=== PATIENT | female | born 1965 | race Caucasian/White ===

== ENCOUNTER 2017-10-06 08:10 | Outpatient (RCR) | payer OTHER, MEDICAID, SELFPAY ==
--- NOTE | 2017-10-06 08:58 | PT.OTN ---
Current Diagnoses Spondylolisthesis, lumbar region (10/06/17) Unspecified inflammatory spondylopathy, lumbar region (10/06/17) Radiculopathy, lumbosacral region (10/06/17) Cervicalgia (10/06/17) Difficulty in walking, not elsewhere classified (10/06/17) Abnormal posture (10/06/17) Weakness (10/06/17) Physical Therapy Treatment Note PT-OP-A Visit Information Start: 10/06/17 07:25 Freq: Status: Active Protocol: Document 10/06/17 08:17 [facility] (Rec: 10/06/17 08:58 [facility] [id number]) Out-Patient Physical Therapy Visit Information Visit Information Visit Type Treatment Note Visit Start Time 08:15 Visit Stop Time 09:05 Total Visit Minutes 55 Visit Number 3 visits left Number of PAINTER HELPER Visits 0 PT-OP-C Subjective Start: 10/06/17 07:25 Freq: Status: Active Protocol: Document 10/06/17 08:17 [facility] (Rec: 10/06/17 08:58 [facility] [id number]) OP-PT Subjective Patient Comments Patient Comments reports some soreness in hips & calves from hike yesterday. PT-OP-Q Treatments Start: 10/06/17 07:25 Freq: Status: Active Protocol: Document 10/06/17 08:17 [facility] (Rec: 10/06/17 08:58 [facility] [id number]) Therapeutic Exercises Standing Exercises 1 Standing Exercise Name Squats with VC for form Reps/Minutes 4 min Therapeutic Activity Therapeutic Activity 1 Comments Review HEP & discuss proper standing posture w/ use of pictures to set pt up into good posture; discussed features of a good bar and importance PT-OP-R Modalities Start: 10/06/17 07:25 Freq: Status: Active Protocol: Document 10/06/17 08:17 [facility] (Rec: 10/06/17 08:58 [facility] [id number]) Hot Pack/Cold Pack Treatment Cold Pack Location cervical & lumbar Patient Position Hooklying Treatment Duration (minutes) 10 PT-OP-T Assessment and Plan Start: 10/06/17 07:25 Freq: Status: Active Protocol: Document 10/06/17 08:17 [facility] (Rec: 10/06/17 08:58 [facility] [id number]) Physical Therapy Assessment Assessment Summary Assessment Improved posture & squating but cont to require cueing for good postural set up and form with squats. Physical Therapy Plan Frequency and Duration Frequency of Treatment Every Other Week Plan of Care End Date 10/31/17 Next Visit Focus/Plan Next Visit Plan cont to work on postural stability
--- NOTE | 2018-05-10 16:53 | PT.OPDS ---
Current Diagnoses Spondylolisthesis, lumbar region (10/06/17) Unspecified inflammatory spondylopathy, lumbar region (10/06/17) Radiculopathy, lumbosacral region (10/06/17) Cervicalgia (10/06/17) Difficulty in walking, not elsewhere classified (10/06/17) Abnormal posture (10/06/17) Weakness (10/06/17) Provider Visit Care Team Role Provider Type Kota Amaro PA-C Attending Provider Advanced [employer] Meter Reader Family Provider Primary Care Provider Specialty: Orthopedic Surgery Address: [address] [place] [address], [id number] Email: [email or web address] Visit Number Visit Number 3 visits left Discharge Summary PT-OP-C Subjective Start: 10/06/17 07:25 Freq: Status: Active Protocol: Document 10/06/17 08:17 [facility] (Rec: 10/06/17 08:58 [facility] [id number]) OP-PT Subjective Patient Comments Patient Comments reports some soreness in hips & calves from hike yesterday. PT-OP-T Assessment and Plan Start: 10/06/17 07:25 Freq: Status: Active Protocol: Document 05/10/18 16:52 [facility] (Rec: 05/10/18 16:53 [facility] [id number]) Physical Therapy Plan Discharge Physical Therapy Discharge Reasons No Longer Attending PT Discharge Comments Pt called 2x for scheduling further appt but pt did not schedule further. DC at this time.
== END 2018-05-12 10:00 ==
LOC: PHYS 08:10
PROVIDERS: Family Provider Physician Assistant; PCP Physician Assistant; Visit Provider Physician Assistant
DX: M43.16 Spondylolisthesis, lumbar region (principal); M46.96 Unspecified inflammatory spondylopathy, lumbar region; M54.17 Radiculopathy, lumbosacral region; M54.2 Cervicalgia; R53.1 Weakness; R29.3 Abnormal posture; R26.2 Difficulty in walking, not elsewhere classified
CPT/HCPCS: 97012; 97140; 97530

== ENCOUNTER 2017-11-05 06:58 | Day surgery (SDC) | payer OTHER, MEDICAID, SELFPAY ==
[2017-11-05 07:45] VITALS: BP 109/76; PULSE 85; RESP 16; TEMP 36.4; O2SAT 98
[2017-11-05] MEDS: SODIUM CHLORIDE 0.9% 1,000 ML 200 ML IV (07:51)
[2017-11-05] MEDS: ONDANSETRON 4 MG/2 ML INJ IV (07:54)
--- NOTE | 2017-11-05 07:56 | PM.PREOP ---
Pre-operative Note Interval Note Pre-op Check: History & Physical Reviewed by Physician and Exam Performed H&P completed within 30 days and has changed as indicated here:: no change ASA Class (for procedural sedation): I
[2017-11-05] MEDS: fentaNYL 250 MCG/5 ML INJ IV (08:24)
[2017-11-05] MEDS: MIDAZOLAM 5 MG/5 ML VIAL IV (08:26)
--- NOTE | 2017-11-05 08:28 | PM.OP.ENDO ---
Operative Date/Time/Diagnoses - Date of procedure: 11/05/17 Time of procedure: 08:29 Post-op diagnosis: same (Internal hemorrhoids with scarring) Procedure & Clinicians Study performed: Colonoscopy Same procedure as scheduled: Yes Indications: Screening due to age. This is her 1st exam. Surgeon: Stanford Stallings Procedure Notes SCOAP/Timeout: Performed Procedure in detail: The patient was placed in the left lateral decubitus position and underwent IV sedation directed by the surgeon consisting of fentanyl and Versed. Digital exam was unremarkable. The scope was inserted and advanced through the rectum into the sigmoid, descending, transverse, and ascending colon. There were numerous diverticuli with mild to moderate narrowing and tortuosity through the sigmoid colon. The cecum was reached identified by the ileocecal valve and the appendiceal opening. The ileocecal valve was successfully cannulated. The terminal ileum was normal in appearance. The scope was gradually brought out. No Polyps were found. The scope ultimately was retroflexed in the rectum. The appearance was[remarkable for small internal hemorrhoids with scarring. No active ulceration was noted.]. The scope was removed and the patient tolerated the procedure well Scope withdrawal time: 11 min Sedation minutes: 22 Findings: diverticulosis (Sigmoid. Heavy concentration.) and internal hemorrhoids Specimen(s): none sent Complications: none Recommendations: Colonscopy in 10 years Follow up: as needed Disposition: PACU
[2017-11-05 08:35] VITALS: BP 103/70; PULSE 74; RESP 16; TEMP 36.1
--- NOTE | 2017-11-05 08:35 | P.OP.ENDO_ITS ---
Operative Date/Time/Diagnoses - Date of procedure: 11/05/17 Time of procedure: 08:29 Post-op diagnosis: same (Internal hemorrhoids with scarring) Procedure & Clinicians Study performed: Colonoscopy Same procedure as scheduled: Yes Indications: Screening due to age. This is her 1st exam. Surgeon: Stanford Stallings Procedure Notes SCOAP/Timeout: Performed Procedure in detail: The patient was placed in the left lateral decubitus position and underwent IV sedation directed by the surgeon consisting of fentanyl and Versed. Digital exam was unremarkable. The scope was inserted and advanced through the rectum into the sigmoid, descending, transverse, and ascending colon. There were numerous diverticuli with mild to moderate narrowing and tortuosity through the sigmoid colon. The cecum was reached identified by the ileocecal valve and the appendiceal opening. The ileocecal valve was successfully cannulated. The terminal ileum was normal in appearance. The scope was gradually brought out. No Polyps were found. The scope ultimately was retroflexed in the rectum. The appearance was[remarkable for small internal hemorrhoids with scarring. No active ulceration was noted.] . The scope was removed and the patient tolerated the procedure well Scope withdrawal time: 11 min Sedation minutes: 22 Findings: diverticulosis (Sigmoid. Heavy concentration.) and internal hemorrhoids Specimen(s): none sent Complications: none Recommendations: Colonscopy in 10 years Follow up: as needed Disposition: PACU
[2017-11-05 08:37] VITALS: BP 113/66; PULSE 88; RESP 16; O2SAT 93
--- NOTE | 2017-11-05 08:41 | SUR.PHASEI ---
Pt stable in PACU s/p colonoscopy with Dr Stallings. Pt wide awake and asking appropriate questions. Hemodynamically stable, resting comfortably on L side, and has been water.
[2017-11-05 08:44] VITALS: BP 105/66; PULSE 79; RESP 18; O2SAT 93
[2017-11-05 08:49] VITALS: BP 118/76; PULSE 73; RESP 20; O2SAT 93
[2017-11-05 08:59] VITALS: BP 97/68; PULSE 75; RESP 16; TEMP 36.1; O2SAT 99
== END 2017-11-05 09:17 | disposition home or self-care (01) ==
PROVIDERS: Family Provider Physician Assistant; PCP Physician Assistant; Visit Provider Specialist
PROC: 0DJD8ZZ Inspection of Lower Intestinal Tract, Via Natural or Artificial Opening Endoscopic (ICD-10-PCS; CPT 45378; principal; 2017-11-05 07:45)
DX: Z12.11 Encounter for screening for malignant neoplasm of colon (principal); K64.8 Other hemorrhoids; K57.30 Diverticulosis of large intestine without perforation or abscess without bleeding; E03.9 Hypothyroidism, unspecified
CPT/HCPCS: 45378; 99152; J2250; J2405; J3010

== ENCOUNTER → 2017-12-16 07:03 | Outpatient (CLI) | payer OTHER, MEDICAID, SELFPAY ==
--- NOTE | 2017-12-16 | DI.MRI.S_ITS ---
PROCEDURE: MR LUMBAR SPINE WO CON INDICATIONS: LUMBAR PAIN TECHNIQUE: Noncontrast sagittal T1 spin echo and T2 fast echo, sagittal STIR, axial T1 and T2 fast spin echo through the lumbar spine. In cases with scoliosis, additional coronal T2 fast spin echo may be performed. COMPARISON: Outside Film, MR, MR LUMBAR SPINE WITH CONTRAST, 07/07/2016, 15:02. [facility] Outside Film, MR, MR LUMBAR SPINE WITHOUT CONTRAST, 07/07/2016, 15:02. [facility], CR, T AND L SPINE 2 TO 3 VIEWS, 06/09/2017, 8:46. FINDINGS: Image quality: Excellent. Alignment and Curvature: There is mild L4-L5 anterolisthesis secondary to facet hypertrophy which is unchanged compared to 07/07/2016. There is otherwise normal alignment and curvature of the lumbar spine. Bone Marrow: Mild reactive endplate changes noted adjacent to the L4-L5 disc. Benign, intraosseous hemangioma noted in the L1 vertebral body. No acute vertebral body compression fractures. Spinal Cord: Conus medullaris terminates at the L1 level. Visualized cord demonstrates normal signal and size. Paraspinous Soft Tissues: No paravertebral masses. L1-L2: Normal appearance. L2-L3: Normal appearance. L3-L4: Normal appearance. L4-L5: Loss of the signal. Minimal, diffuse disc bulge. Severe bilateral facet hypertrophy. Moderate narrowing of the central canal secondary to disc disease. Small 6 mm in diameter synovial cyst projects off the medial margin of the left L4-L5 facet. Synovial cyst abuts the slightly displaces the traversing left L5 nerve root. Severe right and moderate left neural foraminal narrowing with flattening deformity exiting right L4 nerve root. L5-S1: Normal appearance. IMPRESSION: 1. Right I L4-L5 degenerative spondylolisthesis. 2. Mild L4-L5 degenerative disc disease. 3. Severe L4-L5 facet arthropathy. 4. Moderate L4-L5 central canal narrowing. 5. Severe right and moderate left L4-L5 neural foraminal narrowing. 6. Flattened deformity of the exiting right L4 nerve root secondary to right L4-L5 neural foraminal narrowing. Please correlate with clinical data. 7. 6 mm left L4-L5 facet synovial cyst abuts and slightly displaces the traversing left L5 nerve root. Please correlate with clinical data. Dictated by: Alba Moreno MD, PhD on 12/16/2017 at 12:11 Approved by: Alba Moreno MD, PhD on 12/16/2017 at 12:17
== END ==
PROVIDERS: Family Provider Physician Assistant; PCP Physician Assistant; Visit Provider Physician Assistant
DX: M54.5 Low back pain (principal); M43.16 Spondylolisthesis, lumbar region; M51.36 Other intervertebral disc degeneration, lumbar region; M47.816 Spondylosis without myelopathy or radiculopathy, lumbar region; M48.061 Spinal stenosis, lumbar region without neurogenic claudication; M71.38 Other bursal cyst, other site
CPT/HCPCS: 72148

== ENCOUNTER → 2019-03-17 14:17 | Outpatient (CLI) | payer BC, SELFPAY ==
--- NOTE | 2019-03-17 | DI.MG.S_ITS ---
BILATERAL DIGITAL SCREENING MAMMOGRAM 3D/2D WITH CAD WITH AUGMENTATION: 03/17/2019 CLINICAL: Routine screening. Family history of breast cancer. Comparison is made to exams dated: 11/09/2017 mammogram - [facility], 01/08/2016 mammogram, and 04/15/2012 mammogram - [facility]. There are scattered fibroglandular elements in both breasts. Current study was also evaluated with a Computer Aided Detection (CAD) system. Bilateral breast implants are stable. No significant masses, calcifications, or other findings are seen in either breast. There has been no significant interval change. IMPRESSION: NEGATIVE There is no mammographic evidence of malignancy. A 1 year screening mammogram is recommended. This exam was interpreted at Station ID: [id number]. NOTE: For mammograms, a report in lay terms will be sent to the patient. Approximately 15% of breast malignancies will not be visualized mammographically. In the management of a palpable breast mass, a negative mammogram must not discourage biopsy of a clinically suspicious lesion. Electronically Signed By: Emily reagan/darrel:03/20/2019 15:32:37 copy to: Raj Nuñez letter sent: Normal Exam ACR BI-RADS Category 1: Negative 3341F
== END ==
PROVIDERS: PCP Physician Assistant; Visit Provider Physician Assistant
DX: Z12.31 Encounter for screening mammogram for malignant neoplasm of breast (principal); Z80.3 Family history of malignant neoplasm of breast
CPT/HCPCS: 77063; 77067

== ENCOUNTER → 2020-03-29 12:51 | Outpatient (CLI) | payer BC, SELFPAY ==
--- NOTE | 2020-03-29 | DI.MG.S_ITS ---
BILATERAL DIGITAL SCREENING MAMMOGRAM 3D/2D WITH CAD WITH AUGMENTATION: 03/29/2020 CLINICAL: Routine screening. Family history of breast cancer. Comparison is made to exams dated: 03/17/2019 mammogram - [facility], 11/09/2017 mammogram - [facility], and 01/08/2016 mammogram - [facility]. There are scattered fibroglandular elements in both breasts. Current study was also evaluated with a Computer Aided Detection (CAD) system. Bilateral breast implants are stable. No significant masses, calcifications, or other findings are seen in either breast. There has been no significant interval change. IMPRESSION: NEGATIVE There is no mammographic evidence of malignancy. A 1 year screening mammogram is recommended. This exam was interpreted at Station ID: [id number]. NOTE: For mammograms, a report in lay terms will be sent to the patient. Approximately 15% of breast malignancies will not be visualized mammographically. In the management of a palpable breast mass, a negative mammogram must not discourage biopsy of a clinically suspicious lesion. Electronically Signed By: Noah poe/darrel:03/29/2020 17:06:58 copy to: Raj Nuñez letter sent: Normal Exam ACR BI-RADS Category 1: Negative 3341F
== END ==
PROVIDERS: PCP Registered Nurse Diabetes Educator; Referring Provider Registered Nurse Diabetes Educator; Visit Provider Registered Nurse Diabetes Educator
DX: Z12.31 Encounter for screening mammogram for malignant neoplasm of breast (principal); Z80.3 Family history of malignant neoplasm of breast
CPT/HCPCS: 77063; 77067

== ENCOUNTER → 2020-08-30 11:51 | Outpatient (CLI) | payer OTHER, SELFPAY ==
[2020-08-30] MEDS: COVID-19 VACC, Ad26(JANSSEN)/PF 0.5 ML IM (12:01)
== END ==
PROVIDERS: PCP Registered Nurse Diabetes Educator; Visit Provider Internal Medicine
DX: Z23 Encounter for immunization (principal)
CPT/HCPCS: 0031A; 91303

== ENCOUNTER → 2020-10-29 09:08 | Outpatient (CLI) | payer OTHER, SELFPAY ==
[2020-10-29 10:08] LABS: Add Manual Diff / Slide Review NO; Basophils Absolute Auto 100 /uL (0-100); Basophils Percent Auto 0.9 % (0-2); Eosinophils Absolute Auto 300 /uL (0-450); Eosinophils Percent Auto 4.3 % (2-4); Hematocrit 39.2 % (36-46); Hemoglobin 12.9 g/dL (12.0-16.0); Lymphocytes Absolute Auto 2500 /uL (1100-4500); Lymphocytes Percent Auto 37.3 % (25-40); Mean Corpuscular Hemoglobin 25.9 PG (26-34); Mean Corpuscular Volume 78.3 fL (80-100); Monocytes Absolute Auto 500 /uL (0-900); Monocytes Percent Auto 7.4 % (3-14); Neutrophils Absolute Auto 3300 /uL (1500-7000); Neutrophils Percent Auto 50.1 % (50-75); Platelet Count 302 X10^3/uL (150-400); Red Cell Distribution Width 14.5 % (11.6-14.8); White Blood Cell Count 6.7 X10^3/uL (4.5-11.0)
[2020-10-29 10:12] LABS: Alanine Aminotransferase 19 IU/L (<35); Albumin 3.8 g/dL (3.5-5.0); Albumin Globulin Ratio 1.4 (1.0-2.8); Alkaline Phosphatase 68 U/L (38-126); Aspartate Aminotransferase 22 IU/L (14-36); BUN Creatinine Ratio 23.5 (6-22); Bilirubin Total 0.7 mg/dL (0.2-1.3); Blood Urea Nitrogen 16 mg/dL (7-17); Calcium 8.9 mg/dL (8.4-10.2); Carbon Dioxide 29 mmol/L (22-32); Chloride 105 mmol/L (98-107); Estimated Glomerular Filt Rate > 60.0 mL/min (>60); Globulin 2.8 g/dL (1.7-4.1); Glucose 97 mg/dL (70-100); HEMOLYSIS < 15 (0-50); Sodium 137 mmol/L (137-145); Total Protein 6.6 g/dL (6.3-8.2)
[2020-10-29 11:24] LABS: TSH w/ Reflex to FT4 0.93 uIU/mL (0.47-4.68)
== END ==
PROVIDERS: PCP Registered Nurse Diabetes Educator; Referring Provider Registered Nurse Diabetes Educator; Visit Provider Registered Nurse Diabetes Educator
DX: R22.30 Localized swelling, mass and lump, unspecified upper limb (principal)
CPT/HCPCS: 36415; 80053; 84443; 85025

== ENCOUNTER → 2020-10-30 14:34 | Outpatient (CLI) | payer OTHER, SELFPAY ==
--- NOTE | 2020-10-30 14:37 | DI.US.S_ITS ---
PROCEDURE: US EXTREMELY NONVASC UPPER RT INDICATIONS: eval R upper arm mass TECHNIQUE: Real-time scanning was performed of the right arm medially, proximal to mid humerus area., with image documentation. COMPARISON: None. FINDINGS: There is a ovoid structure that is isoechoic to fat tissue, measuring 1.1 x 3.0 x 4.6 cm in AP, transverse and sagittal dimensions. This shows no abnormal increased peripheral or internal vascularity and has an appearance consistent with lipoma. 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 Dictated by: Froylan Jones M.D. on 10/30/2020 at 15:54 Approved by: Froylan Jones M.D. on 10/30/2020 at 15:56
== END ==
PROVIDERS: PCP Registered Nurse Diabetes Educator; Referring Provider Registered Nurse Diabetes Educator; Visit Provider Registered Nurse Diabetes Educator
DX: R22.31 Localized swelling, mass and lump, right upper limb (principal)
CPT/HCPCS: 76882

== ENCOUNTER → 2020-12-31 09:34 | Outpatient (CLI) | payer OTHER, SELFPAY ==
[2021-01-01 05:37] LABS: Immunoglobulin A 118 mg/dL (87-352)
[2021-01-01 15:13] LABS: Tissue Transglutaminase IgA <2 U/mL (0-3)
[2021-01-01 16:28] LABS: Tissue Transglutaminase IgG 4 U/mL (0-5)
== END ==
PROVIDERS: PCP Registered Nurse Diabetes Educator; Referring Provider Internal Medicine Gastroenterology; Visit Provider Internal Medicine Gastroenterology
DX: R14.0 Abdominal distension (gaseous) (principal); R10.9 Unspecified abdominal pain
CPT/HCPCS: 36415; 82784; 83516

== ENCOUNTER → 2021-04-21 10:10 | Outpatient (CLI) | payer OTHER, SELFPAY ==
[2021-04-21 13:21] LABS: Hemoglobin A1C% w Est Avg Glu 5.3 % (4.0-6.0)
== END ==
PROVIDERS: PCP Registered Nurse Diabetes Educator; Referring Provider Registered Nurse Diabetes Educator; Visit Provider Registered Nurse Diabetes Educator
DX: Z83.3 Family history of diabetes mellitus (principal)
CPT/HCPCS: 36415; 83036

== ENCOUNTER → 2021-11-11 12:02 | Outpatient (CLI) | payer OTHER, MEDICAID, SELFPAY ==
--- NOTE | 2021-11-11 | DI.MG.S_ITS ---
BILATERAL DIGITAL DIAGNOSTIC MAMMOGRAM 3D/2D WITH AUGMENTATION: 11/11/2021 CLINICAL: Left breast pain and lump since 1996. Comparison is made to exams dated: 03/29/2020 mammogram, 03/17/2019 mammogram - [facility], and 11/09/2017 mammogram - [facility]. There are scattered fibroglandular elements in both breasts. No significant masses, calcifications, or other findings are seen in either breast. Chronic left breast implant rupture is stable in appearance. Right breast implant is stable. IMPRESSION: INCOMPLETE: NEEDS ADDITIONAL IMAGING EVALUATION No mammographic evidence of malignancy. A targeted ultrasound is recommended and will immediately follow. Stable chronic left breast implant rupture. This exam was interpreted at Station ID: [id number]. NOTE: For mammograms, a report in lay terms will be sent to the patient. Approximately 15% of breast malignancies will not be visualized mammographically. In the management of a palpable breast mass, a negative mammogram must not discourage biopsy of a clinically suspicious lesion. Electronically Signed By: Tremayne Louie M.D. slc/:11/11/2021 12:58:54 copy to: Raj Nuñez ACR BI-RADS Category 0: Incomplete [id number]
--- NOTE | 2021-11-11 12:03 | DI.US.S_ITS ---
LIMITED ULTRASOUND OF LEFT BREAST AND AXILLA: 11/11/2021 CLINICAL: Palpable left axilla lump. Comparison is made to exams dated: 11/11/2021 mammogram, 03/29/2020 mammogram, and 03/17/2019 mammogram - [facility]. Color flow and real-time ultrasound of the left breast axilla were performed. Maurer scale images of the real-time examination were reviewed. No significant abnormalities were seen sonographically in the left breast in the region of the palpable abnormality. No enlarged lymph nodes. IMPRESSION: NEGATIVE There is no sonographic evidence of malignancy at the palpable abnormality. Exam findings were conveyed to the patient. Patient is advised to monitor for significant change. Clinical follow-up as needed. A 1 year screening mammogram is recommended. This exam was interpreted at Station ID: [id number]. Electronically Signed By: Tremayne Louie M.D. slc/:11/11/2021 14:15:01 copy to: Raj Nuñez letter sent: Normal Exam Ultrasound BI-RADS: 1 Negative
== END ==
PROVIDERS: PCP Registered Nurse Diabetes Educator; Referring Provider Registered Nurse Diabetes Educator; Visit Provider Registered Nurse Diabetes Educator
DX: N64.4 Mastodynia (principal); R92.2 Inconclusive mammogram; T85.43XA Leakage of breast prosthesis and implant, initial encounter
CPT/HCPCS: 76642; 77066; G0279

== ENCOUNTER → 2021-12-01 14:52 | Outpatient (CLI) | payer OTHER, MEDICAID, SELFPAY ==
[2021-12-01 16:47] LABS: Erythrocyte Sedimentation Rate 3 MM/HR (0-20)
== END ==
PROVIDERS: PCP Registered Nurse Diabetes Educator; Referring Provider Registered Nurse Diabetes Educator; Visit Provider Registered Nurse Diabetes Educator
DX: R52 Pain, unspecified (principal)
CPT/HCPCS: 36415; 85651

== ENCOUNTER → 2022-01-21 15:34 | Outpatient (CLI) | payer OTHER, MEDICAID, SELFPAY ==
--- NOTE | 2022-01-21 | DI.CT.S_ITS ---
PROCEDURE: CT INTERNAL AUDITORY CANALS BI INDICATIONS: Cholesteatoma of attic, left ear COMPARISON: None. TECHNIQUE: Noncontrast 0.6 mm thick axial sections acquired through each temporal bone separately. Coronal images are reformatted. FINDINGS: Image quality: Excellent. RIGHT: External auditory canal: Canal has a normal appearance. Middle/inner ear: The middle ear structures, including the ossicles and tympanic membrane, appear normal. No abnormal fluid or soft tissue density. Mastoids: Mastoid air cells demonstrate significant sclerosis with small scattered areas of pneumatized air cells. LEFT: External auditory canal: Canal has a normal appearance. Middle/inner ear: There is an appearance of soft tissue density along the superior margin of the ossicles within the attic. There is no ossific ill erosion. No definitive tympanic membrane retraction. Mastoids: Mastoid air cells demonstrate significant skull oasis as well as fluid-filled cells. There are scattered mastoid air cells that do remain patent. MISCELLANEOUS: Visualized surrounding bones appear unremarkable. Visualized intracranial structures, including the cerebellopontine angle cisterns, appear normal. Fluid is present within the right maxillary sinus as well as scattered areas of fluid and mucosal thickening within the visualized ethmoid air cells suggestive of sinusitis. IMPRESSION: Bilateral sclerosis of the mastoid air cells most severe on the left most suggestive of chronic mastoiditis. Focus of soft tissue density is noted in the attic on the left superior to the ossicles suggestive of cholesteatoma. Dictated by: Martha Moscoso M.D. on 01/21/2022 at 17:24 Approved by: Martha Moscoso M.D. on 01/21/2022 at 17:28
== END ==
PROVIDERS: PCP Registered Nurse Diabetes Educator; Referring Provider Otolaryngology; Visit Provider Otolaryngology
DX: H71.02 Cholesteatoma of attic, left ear (principal)
CPT/HCPCS: 70480

== ENCOUNTER → 2022-06-09 12:43 | Outpatient (CLI) | payer OTHER, MEDICAID, SELFPAY ==
[2022-06-09 13:47] LABS: Add Manual Diff / Slide Review NO; Basophils Absolute Auto 100 /uL (0-100); Basophils Percent Auto 0.8 % (0-2); Eosinophils Absolute Auto 200 /uL (0-450); Eosinophils Percent Auto 3.2 % (2-4); Hemoglobin 12.6 g/dL (12.0-16.0); Lymphocytes Absolute Auto 2500 /uL (1100-4500); Lymphocytes Percent Auto 36.9 % (25-40); Mean Corpuscular HGB Conc 32.4 % (30-36); Mean Corpuscular Hemoglobin 24.9 PG (26-34); Mean Corpuscular Volume 76.9 fL (80-100); Monocytes Absolute Auto 500 /uL (0-900); Monocytes Percent Auto 7.5 % (3-14); Neutrophils Absolute Auto 3500 /uL (1500-7000); Neutrophils Percent Auto 51.6 % (50-75); Platelet Count 330 X10^3/uL (150-400); Red Blood Cell Count 5.07 X10^6/uL (4.0-5.2); Red Cell Distribution Width 15.4 % (11.6-14.8); White Blood Cell Count 6.7 X10^3/uL (4.5-11.0)
[2022-06-09 14:16] LABS: Alanine Aminotransferase 23 IU/L (<35); Alkaline Phosphatase 74 U/L (38-126); Aspartate Aminotransferase 22 IU/L (14-36); BUN Creatinine Ratio 28.2 (6-22); Bilirubin Total 0.6 mg/dL (0.2-1.3); Blood Urea Nitrogen 20 mg/dL (7-17); Calcium 9.2 mg/dL (8.4-10.2); Carbon Dioxide 29 mmol/L (22-32); Chloride 103 mmol/L (98-107); Estimated Glomerular Filt Rate > 60 mL/min (>60); Glucose 110 mg/dL (70-100); HEMOLYSIS < 15 (0-50); Potassium 3.8 mmol/L (3.4-5.1); Sodium 139 mmol/L (137-145)
[2022-06-12 16:18] LABS: Albumin 4.1 g/dL (3.5-5.0); Albumin Globulin Ratio 1.4 (1.0-2.8); Globulin 2.9 g/dL (1.7-4.1)
== END ==
PROVIDERS: PCP Registered Nurse Diabetes Educator; Referring Provider Registered Nurse Diabetes Educator; Visit Provider Registered Nurse Diabetes Educator
DX: Z00.00 Encounter for general adult medical examination without abnormal findings (principal); Z01.818 Encounter for other preprocedural examination
CPT/HCPCS: 36415; 80053; 85025

== ENCOUNTER → 2022-06-16 09:27 | Outpatient (CLI) | payer OTHER, MEDICAID, SELFPAY | PROVIDERS: PCP Registered Nurse Diabetes Educator; Referring Provider Registered Nurse Diabetes Educator; Visit Provider Registered Nurse Diabetes Educator | DX: R07.9 Chest pain, unspecified (principal) | CPT/HCPCS: 93005 ==

== ENCOUNTER → 2022-06-30 07:44 | Outpatient (CLI) | payer OTHER, MEDICAID, SELFPAY ==
--- NOTE | 2022-06-30 07:45 | DI.NM.S_ITS ---
PROCEDURE: NM EXERCISE TREADMILL NON NUC COMPARISON: None. INDICATIONS: Chest pain/Surgery clearance FINDINGS: Rest ECG sinus rhythm. [place] protocol 7:10, maximum heart rate 156 bpm (96% peak predicted), maximum blood pressure 170/90, 10.1 METS, DARIEL 0%. Stress ECG sinus tachycardia, no ST segment changes or arrhythmias. The patient did not report exercise-induced chest pain. IMPRESSION: Low risk study. No evidence of exercise-induced ischemia or arrhythmia. Normal hemodynamic response to exercise. Average exercise capacity. Dictated by: Reyna Johnson D.O. on 06/30/2022 at 16:28 Approved by: Reyna Johnson D.O. on 06/30/2022 at 16:30
== END ==
PROVIDERS: PCP Registered Nurse Diabetes Educator; Referring Provider Registered Nurse Diabetes Educator; Visit Provider Registered Nurse Diabetes Educator
DX: Z01.818 Encounter for other preprocedural examination (principal); R07.9 Chest pain, unspecified
CPT/HCPCS: 93017

== ENCOUNTER → 2022-12-22 09:20 | Outpatient (CLI) | payer OTHER, MEDICAID, SELFPAY ==
[2022-12-22 12:33] LABS: Hematocrit 39.7 % (36-46); Mean Corpuscular HGB Conc 32.8 % (30-36); Mean Corpuscular Hemoglobin 24.8 PG (26-34); Mean Corpuscular Volume 75.6 fL (80-100); Platelet Count 378 X10^3/uL (150-400); Red Blood Cell Count 5.25 X10^6/uL (4.0-5.2); Red Cell Distribution Width 15.2 % (11.6-14.8); White Blood Cell Count 8.3 X10^3/uL (4.5-11.0)
[2022-12-22 13:27] LABS: Alanine Aminotransferase 24 IU/L (<35); Albumin 4.3 g/dL (3.5-5.0); Albumin Globulin Ratio 1.5 (1.0-2.8); Alkaline Phosphatase 83 U/L (38-126); BUN Creatinine Ratio 22.7 (6-22); Blood Urea Nitrogen 17 mg/dL (7-17); Calcium 9.1 mg/dL (8.4-10.2); Chloride 101 mmol/L (98-107); Cholesterol 200 mg/dL (140-199); Estimated Glomerular Filt Rate > 60 mL/min (>60); Globulin 2.9 g/dL (1.7-4.1); Glucose 90 mg/dL (70-100); HDL Cholesterol 64 mg/dL (40-60); HEMOLYSIS < 15 (0-50); LDL Cholesterol Calculated 122 mg/dL (<100); Potassium 4.7 mmol/L (3.4-5.1); Sodium 138 mmol/L (137-145); Total Protein 7.2 g/dL (6.3-8.2); Triglycerides 69 mg/dL (35-150)
[2022-12-22 13:44] LABS: Carbon Dioxide 28 mmol/L (22-32)
[2022-12-22 14:31] LABS: Aspartate Aminotransferase 24 IU/L (14-36)
[2022-12-22 18:17] LABS: Free T4, Direct Thyroxine 1.39 ng/dL (0.78-2.19)
[2022-12-22 18:32] LABS: Thyroid Stimulating Hormone 1.26 uIU/mL (0.47-4.68)
== END ==
PROVIDERS: PCP Registered Nurse Diabetes Educator; Referring Provider Registered Nurse Diabetes Educator; Visit Provider Registered Nurse Diabetes Educator
DX: Z00.00 Encounter for general adult medical examination without abnormal findings (principal); E04.1 Nontoxic single thyroid nodule; E66.3 Overweight; R06.83 Snoring; R53.83 Other fatigue
CPT/HCPCS: 36415; 80053; 80061; 82306; 84439; 84443; 85027

== ENCOUNTER → 2023-01-05 09:47 | Outpatient (CLI) | payer OTHER, MEDICAID, SELFPAY ==
--- NOTE | 2023-01-05 09:49 | DI.US.S_ITS ---
PROCEDURE: US THYROID INDICATIONS: reeval nodules TECHNIQUE: Real-time scanning was performed of the thyroid gland, with image documentation. COMPARISON: [facility], US, US THYROID, 11/09/2017, 9:41. FINDINGS: Right: Thyroid lobe measures 3.8 x 1.7 x 1.7 cm, and is homogeneous in echotexture. Left: Thyroid lobe measures 4.0 x 1.2 x 1.3 cm, and is homogenous in echotexture. Isthmus: 0.3 cm thick. Nodule number: 1 Location: Right inferior Size: 0.3 cm, unchanged Composition: Cystic ACR TI-RADS category: Benign Nodule number: 2 Location: Left inferior Size: 0.5 x 0.3 x 0.7 cm, unchanged Composition: Mixed cystic and solid Echogenicity: Indeterminate Shape: Wider than tall Margins: Indistinct Echogenic foci: Macrocalcification Total points: 3 ACR TI-RADS category: Mildly suspicious Previously seen possible parathyroid nodule is not seen. IMPRESSION: Bilateral small thyroid nodules, which do not require dedicated imaging follow-up based on guidelines provided below. ACR TI-RADS definitions and recommendations: TI-RADS 1 (benign): 0 points. FNA not needed. TI-RADS 2 (not suspicious): 2 points. FNA not needed. TI-RADS 3 (mildly suspicious): 3 points. * FNA if 2.5 cm or larger, follow up if 1.5 cm or larger (at 1, 3, and 5 years). TI-RADS 4 (moderately suspicious): 4-6 points. * FNA if 1.5 cm or larger, follow up if 1 cm or larger (at 1, 2, 3, and 5 years). TI-RADS 5 (highly suspicious): 7 points or more. * FNA if 1 cm or larger, follow up if 0.5 cm or larger (every year for 5 years). Approved by: Torin Mayo M.D. on 01/05/2023 at 12:39
== END ==
PROVIDERS: PCP Registered Nurse Diabetes Educator; Referring Provider Registered Nurse Diabetes Educator; Visit Provider Registered Nurse Diabetes Educator
DX: Z00.00 Encounter for general adult medical examination without abnormal findings (principal); E04.2 Nontoxic multinodular goiter; E66.3 Overweight; R53.83 Other fatigue; R06.83 Snoring
CPT/HCPCS: 76536

== ENCOUNTER → 2023-03-11 07:26 | Outpatient (CLI) | payer OTHER, MEDICAID, SELFPAY ==
--- NOTE | 2023-03-11 | DI.MG.S_ITS ---
BILATERAL DIGITAL SCREENING MAMMOGRAM 3D/2D WITH CAD: 03/11/2023 CLINICAL: Routine screening. Family history of breast cancer. Comparison is made to exams dated: 11/11/2021 mammogram, 03/29/2020 mammogram, and 03/17/2019 mammogram - [facility]. There are scattered areas of fibroglandular density in both breasts (category b / 25%-50% glandular tissue). Current study was also evaluated with a Computer Aided Detection (CAD) system. No significant masses, calcifications, or other findings are seen in either breast. There has been no significant interval change. IMPRESSION: NEGATIVE There is no mammographic evidence of malignancy. A 1 year screening mammogram is recommended. Based on the Tyrer Cuzick model (a risk assessment model) the patient's lifetime risk is 10.2% and her 10 year risk is 3.8%. According to the ACR, ACS, and NCCN guidelines, an annual breast MRI exam along with mammogram is recommended if the patient's lifetime risk is 20% or greater. This exam was interpreted at Station ID: [id number]. NOTE: For mammograms, a report in lay terms will be sent to the patient. Approximately 15% of breast malignancies will not be visualized mammographically. In the management of a palpable breast mass, a negative mammogram must not discourage biopsy of a clinically suspicious lesion. Electronically Signed By: Emily reagan/darrel:03/11/2023 16:14:20 copy to: Raj Nuñez letter sent: Normal Exam ACR BI-RADS Category 1: Negative [id number]
== END ==
PROVIDERS: PCP Registered Nurse Diabetes Educator; Referring Provider Registered Nurse Diabetes Educator; Visit Provider Registered Nurse Diabetes Educator
DX: Z12.31 Encounter for screening mammogram for malignant neoplasm of breast (principal); Z80.3 Family history of malignant neoplasm of breast
CPT/HCPCS: 77063; 77067

== ENCOUNTER → 2023-04-19 10:45 | Outpatient (CLI) | payer OTHER, MEDICAID, SELFPAY ==
[2023-04-19 11:51] LABS: Add Manual Diff / Slide Review NO; Basophils Absolute Auto 100 /uL (0-100); Basophils Percent Auto 0.7 % (0-2); Eosinophils Absolute Auto 300 /uL (0-450); Hematocrit 41.9 % (36-46); Hemoglobin 13.6 g/dL (12.0-16.0); Lymphocytes Absolute Auto 3600 /uL (1100-4500); Lymphocytes Percent Auto 39.5 % (25-40); Mean Corpuscular HGB Conc 32.5 % (30-36); Mean Corpuscular Hemoglobin 24.7 PG (26-34); Mean Corpuscular Volume 75.9 fL (80-100); Monocytes Absolute Auto 700 /uL (0-900); Monocytes Percent Auto 7.8 % (3-14); Neutrophils Absolute Auto 4500 /uL (1500-7000); Platelet Count 341 X10^3/uL (150-400); Red Blood Cell Count 5.52 X10^6/uL (4.0-5.2); Red Cell Distribution Width 15.8 % (11.6-14.8); White Blood Cell Count 9.2 X10^3/uL (4.5-11.0)
[2023-04-19 12:04] LABS: Alanine Aminotransferase 30 IU/L (<35); Albumin 4.3 g/dL (3.5-5.0); Albumin Globulin Ratio 1.3 (1.0-2.8); Alkaline Phosphatase 65 U/L (38-126); Aspartate Aminotransferase 27 IU/L (14-36); BUN Creatinine Ratio 23.1 (6-22); Bilirubin Total 0.8 mg/dL (0.2-1.3); Blood Urea Nitrogen 15 mg/dL (7-17); Calcium 9.5 mg/dL (8.4-10.2); Carbon Dioxide 25 mmol/L (22-32); Chloride 105 mmol/L (98-107); Estimated Glomerular Filt Rate > 60 mL/min (>60); Globulin 3.2 g/dL (1.7-4.1); Glucose 102 mg/dL (70-100); HEMOLYSIS < 15 (0-50); Potassium 4.3 mmol/L (3.4-5.1); Sodium 138 mmol/L (137-145); Total Protein 7.5 g/dL (6.3-8.2)
== END ==
PROVIDERS: PCP Registered Nurse Diabetes Educator; Referring Provider Registered Nurse Diabetes Educator; Visit Provider Registered Nurse Diabetes Educator
DX: Z01.818 Encounter for other preprocedural examination (principal)
CPT/HCPCS: 36415; 80053; 85025

== ENCOUNTER → 2023-06-06 09:52 | Outpatient (CLI) | payer OTHER, MEDICAID, SELFPAY | PROVIDERS: PCP Registered Nurse Diabetes Educator; Visit Provider Nurse Practitioner Family | DX: J02.9 Acute pharyngitis, unspecified (principal) | CPT/HCPCS: 87070 ==